=== PATIENT | male | born 1995 | race Caucasian/White ===

== ENCOUNTER 2021-03-11 13:55 | Emergency (ER) | payer BC, OTHER ==
[~2021-03-11] VITALS: Ht 175.3 cm; Wt 79.4 kg
[2021-03-11 16:11] VITALS: BP 123/81
== END 2021-03-11 16:52 | disposition home or self-care (01) ==
LOC: ER 13:55
DX: S61.411A Laceration without foreign body of right hand, initial encounter (principal); W26.9XXA Contact with unspecified sharp object(s), initial encounter; Y93.89 Activity, other specified; Y92.89 Other specified places as the place of occurrence of the external cause; Y99.8 Other external cause status
CPT/HCPCS: 12002